=== PATIENT | female | born 1985 | race Caucasian/White ===

== ENCOUNTER 2017-06-13 18:14 | Emergency (ER) | payer OTHER ==
--- NOTE | 2017-06-13 18:22 | PDOC ---
Rapid Medical Evaluation Time Seen by Provider: 06/13/17 18:19 Medical Evaluation: Allergies Allergy/AdvReac Type Severity Reaction Status Date / Time acetaminophen [From Tylenol] Allergy Intermediate SWOLLEN Verified 06/16/16 12: 35 LIVER. carrot Allergy Intermediate itchy Verified 06/16/16 17:53 throat chocolate flavor AdvReac Intermediate diarrhea Verified 06/16/16 17:53 06/13/17 18:19 The patient presents with a chief complaint of: fever, near syncope and vomited x 1 at clinic I have performed a brief in-person evaluation of this patient. Pertinent physical exam findings: influenza - at clinic I have ordered the following: ua, upreg The patient will proceed to the ED for further evaluation. Discharge Disposition - Diagnosis Fever - Referrals - Patient Instructions - Post Discharge Activity
[2017-06-13 18:23] VITALS: BP 133/70; BMI 31.6
[2017-06-13 18:42] LABS: URINE APPEARANCE CLEAR; URINE BILIRUBIN NEGATIVE (NEGATIVE); URINE BLOOD 2+ (NEGATIVE); URINE COLOR STRAW; URINE GLUCOSE (UA) NEGATIVE (NEGATIVE); URINE KETONE NEGATIVE (NEGATIVE); URINE LEUK ESTERASE NEGATIVE (NEGATIVE); URINE NITRITE NEGATIVE (NEGATIVE); URINE PROTEIN NEGATIVE (NEGATIVE); URINE UROBILINOGEN NEGATIVE mg/dL (0.2-1.0)
[2017-06-13 19:03] LABS: URINE BACTERIA FEW /hpf (NONE SEEN); URINE MUCUS RARE; URINE RBC 2 /hpf (0-3); URINE WBC 3 /hpf (3-5)
[2017-06-13 19:59] LABS: URINE LEUK ESTERASE TRACE (NEGATIVE)
--- NOTE | 2017-06-13 20:31 | PDOC ---
History of Present Illness - General Chief Complaint: Lightheaded Stated Complaint: PCP SENT/DIZZINESS Time Seen by Provider: 06/13/17 18:19 - History of Present Illness Initial Comments: 06/13/17 20:26 Patient is a 31 y.o. female with a PMH of Diverticulosis and Rosacea who presents with a 1 day h/o of low grade fever (99.9), body aches and sore throat. Patient was evaluated at urgent care at which time she had an episode of lightheadedness and non-bilious vomiting. Patient also c/o of urinary incontinence during episodes of emesis Allergy: Acetaminophen Surgical: denies Social: denies nicotine, social alcohol, denies recreational drugs PMD: None - will refer to IM resident clinic Past History - Past Medical History Allergies/Adverse Reactions: Allergies Allergy/AdvReac Type Severity Reaction Status Date / Time acetaminophen [From Tylenol] Allergy Intermediate SWOLLEN Verified 06/13/17 18: 19 LIVER. carrot Allergy Intermediate itchy Verified 06/13/17 18:19 throat chocolate flavor AdvReac Intermediate diarrhea Verified 06/13/17 18:19 Home Medications: Ambulatory Orders Amoxicillin - [Amoxicillin 875mg Tablet -] 875 mg PO BID #14 tab 06/13/17 COPD: No GI Disorders: Yes (divirticulitis) Disorders: Yes (ovarian cyst) - Suicide/Smoking/Psychosocial Hx Smoking History: Never smoked Have you smoked in the past 12 months: No Information on smoking cessation initiated: No Hx Alcohol Use: No Drug/Substance Use Hx: No Substance Use Type: None Hx Substance Use Treatment: No Review of Systems - Review of Systems Constitutional: Yes: Chills, Fever HEENTM: No: Blurred Vision, Double Vision Respiratory: No: Cough, Shortness of Breath Cardiac (ROS): No: Chest Pain ABD/GI: No: Constipated, Diarrhea, Nausea, Vomiting : No: Burning, Dysuria Neurological: No: Headache All Other Systems: Reviewed and Negative *Physical Exam - Vital Signs Last Vital Signs Temp Pulse Resp BP Pulse Ox 98.3 F 108 H 17 133/70 98 06/13/17 18:20 06/13/17 18:20 06/13/17 18:20 06/13/17 18:20 06/13/17 18:20 - Physical Exam General Appearance: Yes: Nourished, Appropriately Dressed HEENT: positive: Normal Voice, Other (B/L Rosacea). negative: Scleral Icterus ( R), Scleral Icterus (L), Pharyngeal Erythema, Tonsillar Exudate, Tonsillar Erythema, Sinus Tenderness Neck: positive: Trachea midline, Supple. negative: Lymphadenopathy (R), Lymphadenopathy (L) Respiratory/Chest: positive: Lungs Clear Cardiovascular: positive: S1, S2 Gastrointestinal/Abdominal: positive: Normal Bowel Sounds, Soft Musculoskeletal: negative: CVA Tenderness (R), CVA Tenderness (L) Integumentary: positive: Normal Color, Dry, Warm Neurologic: positive: Fully Oriented, Alert ED Treatment Course - LABORATORY CBC & Chemistry Diagram: 06/13/17 22:08 06/13/17 22:08 - ADDITIONAL ORDERS Additional order review: Laboratory Results 06/13/17 18:30 Urine Color Straw Urine Appearance Clear Urine pH 6.0 Ur Specific [place] 1.005 Urine Protein Negative Urine Glucose (UA) Negative Urine Ketones Negative Urine Blood 2+ H Urine Nitrite Negative Urine Bilirubin Negative Urine Urobilinogen Negative Ur Leukocyte Esterase Trace H Urine WBC (Auto) 3 Urine RBC (Auto) 2 Ur Epithelial Cells Rare Urine Bacteria Few Urine Mucus Rare Medical Decision Making - Medical Decision Making 06/13/17 20:31 Patient is a 31 y.o. female who presents with low grade fever, body aches, sore throat and solo episode of non-bloody emesis. Initial clinical suspicion for Influenza vs. viral URI vs. strep pharyngitis. PLAN: 1. CBC, CMP, Strep, Influenza 2. UA, Urine 3. 1 L IV NS 4. Motrin Reasesss 06/14/17 00:04 Group A Strep Positive. Patient to be given one dose of Amoxicillin in the ED and discharged home with prescription for Amoxicillin as well as referral to primary care physician. *DC/Admit/Observation/Transfer Diagnosis at time of Disposition: Streptococcal pharyngitis Diagnosis at time of Disposition: (Ruled Out): Fever - Discharge Dispostion Disposition: HOME Condition at time of disposition: Good Admit: No - Prescriptions Prescriptions: Amoxicillin - [Amoxicillin 875mg Tablet -] 875 mg PO BID #14 tab - Referrals Referrals: Tejas Bowen MD [Staff Physician] - - Patient Instructions Additional Instructions: Please take the entire prescribed antibiotic course for 7 days total. You can use warm liquids and Motrin for relief. Please call Tejas Bowen to make an appointment to establish primary care. Please return to the Emergency Department for any new, worsening or concerning symptoms. - Post Discharge Activity Forms/Work/School Notes: Back to Work
[2017-06-13] MEDS ORDERED: IBUPROFEN 400 MG TABLET (FP) PO ONE ×2 (20:32→21:37)
[2017-06-13] MEDS ORDERED: SODIUM CHLORIDE 0.9% 1000 ML INFUS.BAG IV ONE (20:33)
--- NOTE | 2017-06-13 20:34 | PDOC ---
Attending Attestation - Resident Resident Name: Digna Dowd - ED Attending Attestation I have performed the following: I have examined & evaluated the patient, The case was reviewed & discussed with the resident, I agree w/resident's findings & plan, Exceptions are as noted <Casey Quiñonez - Last Filed: 06/13/17 20:34> - HPI HPI: 06/13/17 22:13 Patient is a 31 year old female with a significant past medical history of Diverticulosis, small ovarian cyst and malar distribution facial rash, who presents to the ED with complaints of fever that began 1 day ago. Patient reports going to urgent care center this morning for fever where she experienced episode of headache and vomiting. She reports coming to the ED for further evaluation after fever did not subside. Patient reports experiencing general body ache and sore throat secondary to fever. Patient denies any contact with sick individuals but is currently a aerobics teacher. Patient is currently on her menstrual cycle. Denies chest pain, SOB. Denies constipation, diarrhea. Denies nausea, vomiting. Denies out of state travel. Denies any other symptoms. Allergies: Tylenol, Carrot, Chocolate flavor. Social history: No smoking. Social drinker. No illicit drugs. FamHx - grandmother and grandfather pancreatic CA. Mother benign polyps on colonoscopy Allergies Surgical history: None PMD: None <Franklin Walsh - Last Filed: 06/13/17 22:13>
[2017-06-13 22:20] LABS: BASOPHIL 0.2 % (0-2.0); EOSINOPHIL 0.1 % (0-4.5); MCH 27.8 pg (25.7-33.7); MEAN CELL VOLUME 84.4 fl (80-96); MEAN PLT VOLUME 8.5 fl (7.5-11.1); NEUTROPHILS 84.6 % (42.8-82.8); PLATELET COUNT 252 K/MM3 (134-434); WHITE BLOOD COUNT 13.9 K/mm3 (4.0-10.0)
[2017-06-13 22:46] LABS: ALBUMIN 3.5 g/dl (3.4-5.0); ANION GAP 6 (8-16); CALCIUM 7.8 mg/dL (8.5-10.1); CO2 24 mmol/L (21-32); CREATININE 0.8 mg/dL (0.55-1.02); GLUCOSE,RANDOM 133 mg/dL (74-106); SGOT/AST 10 U/L (15-37); SGPT/ALT 17 U/L (12-78)
[2017-06-13 22:48] LABS: ALK PHOS 92 U/L (45-117); BILIRUBIN,TOTAL 0.4 mg/dL (0.2-1.0); TOT PROT 7.1 g/dl (6.4-8.2)
[2017-06-13] MEDS ORDERED: AMOXICILLIN 500 MG CAPSULE (FP) PO ONE (23:22)
[2017-06-13] MEDS ORDERED: AMOXICILLIN 500 MG CAPSULE (FP) ONE (23:36)
[2017-06-14 00:12] VITALS: PULSE 90; TEMP 98
== END 2017-06-14 00:12 | disposition home or self-care (01) ==
LOC: JER 18:14 → JERFT 18:14 → JER 06-14 00:12
DX: J02.0 Streptococcal pharyngitis (principal); B95.0 Streptococcus, group A, as the cause of diseases classified elsewhere
CPT/HCPCS: 36415; 80053; 81003; 81015; 84703; 85025; 87070; 87086; 87430; 87804; 99282-25